=== PATIENT | female | born 1960 | race Caucasian/White ===

== ENCOUNTER 2018-09-22 09:57 | Day surgery (SDC) | payer OTHER ==
[2018-09-19 11:52] VITALS: BMI 28.4
[2018-09-22] MEDS ORDERED: methylPREDNISolone NA SUCC 125 MG/2 ML VIAL ONE (11:56)
[2018-09-22] MEDS ORDERED: MIDAZOLAM HCL 2 MG/2 ML SINGLE DOSE VIAL ONE ×2 (12:37)
--- NOTE | 2018-09-22 14:16 | OP ---
Operative Note - Note: Operative Date: 09/22/18 Pre-Operative Diagnosis: Left renal stone Operation: Left ESWL Findings: 10 mm Left renal pelvic area stone Post-Operative Diagnosis: Same as Pre-op Surgeon: Erik Martinez Anesthesia: Fractional Estimated Blood Loss (mls): 0 Operative Report Dictated: Yes
[2018-09-22 15:51] VITALS: BP 117/75; PULSE 54; TEMP 97.6
--- NOTE | 2018-09-22 20:26 | OP ---
DATE OF OPERATION: 09/22/2018 PREOPERATIVE DIAGNOSIS: Left renal stone. POSTOPERATIVE DIAGNOSIS: Left renal stone. PROCEDURE: Left extracorporeal shock wave lithotripsy. ATTENDING: Erik Ayoub MD ANESTHESIA: Fractional. DESCRIPTION OF OPERATION: The patient was brought in the operating room, placed in supine position on the operating room table. Ultrasonography and fluoroscopy were performed. A 10-mm left pelvic stone was identified. Anesthesia and preoperative antibiotics were then administered. Shock wave lithotripsy was then started; 3000 impulses at 20 joules of power were administered to the stone. Excellent fragmentation was noted under real-time ultrasonography and fluoroscopy. No complications were noted. The patient tolerated the procedure very well. Noel [id number]
== END 2018-09-22 15:30 | disposition home or self-care (01) ==
LOC: JASU-SURG 09:57
PROVIDERS: ATTEND Urology
PROC: 0TF4XZZ Fragmentation in Left Kidney Pelvis, External Approach (ICD-10-PCS; principal; 2018-09-22 11:00)
DX: N20.0 Calculus of kidney (principal)

== ENCOUNTER 2021-10-16 04:11 | Day surgery (SDC) | payer OTHER ==
[2021-10-09 17:09] VITALS: BMI 28.2
[2021-10-16] MEDS ORDERED: MIDAZOLAM HCL 2 MG/2 ML SINGLE DOSE VIAL ONE (11:22)
[2021-10-16] MEDS ORDERED: FENTANYL CITRATE/PF 50 MCG/ML VIAL ONE (11:22)
[2021-10-16 16:42] VITALS: TEMP 97.8
[2021-10-16 16:44] VITALS: BP 119/72; PULSE 67
== END 2021-10-16 14:15 | disposition home or self-care (01) ==
LOC: JASU-SURG 04:11
PROVIDERS: ATTEND Urology
PROC: 0TF4XZZ Fragmentation in Left Kidney Pelvis, External Approach (ICD-10-PCS; principal; 2021-10-16 11:00)
DX: N20.0 Calculus of kidney (principal)

== ENCOUNTER 2023-09-16 04:20 | Day surgery (SDC) | payer OTHER ==
[2023-09-12 16:54] VITALS: BMI 29.3
[2023-09-16 12:43] VITALS: RESP 18
[2023-09-16] MEDS ORDERED: FENTANYL CITRATE/PF 50 MCG/ML VIAL ONE (13:54)
[2023-09-16] MEDS ORDERED: ONDANSETRON 4 MG/2 ML VIAL ONE (13:54)
[2023-09-16] MEDS ORDERED: MIDAZOLAM HCL 2 MG/2 ML SINGLE DOSE VIAL ONE ×2 (13:54→13:58)
[2023-09-16 14:59] VITALS: BP 108/61; PULSE 60; TEMP 97.7
== END 2023-09-16 16:30 | disposition home or self-care (01) ==
LOC: JASU-SURG 04:20
PROVIDERS: ATTEND Urology
PROC: 0TF3XZZ Fragmentation in Right Kidney Pelvis, External Approach (ICD-10-PCS; principal; 2023-09-16 13:30)
DX: N20.0 Calculus of kidney (principal)